=== PATIENT | male | born 1970 | race African-American/Black ===

== ENCOUNTER 2018-03-01 20:24 | Inpatient (IN) | payer SELFPAY ==
[~2018-03-01] VITALS: Ht 172.7 cm; Wt 101.7 kg
[2018-03-01] MEDS ORDERED: IOHEXOL 350 MG/ML 10 ML VIAL (for RAD DIAG) IVCONTRAST ONE (20:25)
[2018-03-01 20:36] VITALS: BP 153/90; PULSE 91; RESP 18; TEMP 98.5; O2SAT 95
[2018-03-01] MEDS ORDERED: ASPIRIN 325 MG TAB PO ONE (21:15)
--- NOTE | 2018-03-01 21:46 | RADRPT ---
EXAM DATE: 03/01/2018 9:22 PM EDT AGE/SEX: 47 years / Male INDICATIONS: Chest pain and short of breath. CLINICAL DATA: This is the patient's initial encounter. Patient reports that signs and symptoms have been present for 2 days and indicates a pain score of 2/10. MEDICAL/SURGICAL HISTORY: None. None. COMPARISON: No prior exams available for comparison. FINDINGS: A single AP view of the chest demonstrates the lungs to be symmetrically aerated without evidence of mass, infiltrate or effusion. The cardiomediastinal contours are unremarkable. Osseous structures a re intact. CONCLUSION: No active disease. Electronically signed by: Bruno Jacinto MD 03/01/2018 9:44 PM EDT
[2018-03-01 22:11] LABS: HEMATOCRIT 34.8 % (39.0-51.0); HEMOGLOBIN 12.2 GM/DL (13.0-17.0); MEAN CELL VOLUME 81.9 FL (80.0-100.0); MEAN CORPUSCULAR HEMOGLOBIN 28.8 PG (27.0-34.0); MEAN CORPUSCULAR HGB CONC 35.2 % (32.0-36.0); MEAN PLATELET VOLUME 7.6 FL (7.0-11.0); PLATELET COUNT 313 TH/MM3 (150-450); RED BLOOD COUNT 4.25 MIL/MM3 (4.50-5.90); WHITE BLOOD COUNT 4.3 TH/MM3 (4.0-11.0)
[2018-03-01 22:19] LABS: INTERNATIONAL NORMALIZED RATIO 1.1 RATIO; PROTHROMBIN TIME - PATIENT 11.4 SEC (9.8-11.6)
[2018-03-01 22:21] LABS: ALBUMIN 2.9 GM/DL (3.4-5.0); AST (GOT) 18 U/L (15-37); BICARBONATE 22.5 MEQ/L (21.0-32.0); BLOOD UREA NITROGEN 11 MG/DL (7-18); CALCIUM 8.6 MG/DL (8.5-10.1); CHLORIDE 110 MEQ/L (98-107); CREATININE 1.24 MG/DL (0.60-1.30); GLOMERULAR FILTRATION RATE 62 ML/MIN (>89); GLUCOSE,RANDOM 88 MG/DL (74-106); SODIUM (NA) 143 MEQ/L (136-145)
--- NOTE | 2018-03-01 22:22 | PD ---
HPI Chief Complaint: Chest Pain Time Seen by Provider: 20:55 Travel History International Travel<30 days: No Contact w/Intl Traveler<30days: No Traveled to known affect area: No History of Present Illness HPI 47-year-old male that presents to the ED for evaluation of chest pain. Per patient has had some chest pain and shortness of breath for the past couple of days. Per patient he has had an episode like this before a couple weeks ago but did not seek help. Per patient he got concerned as well as his friend because he complained of severe pain on her right leg. Per patient he woke up with this pain a couple of days ago. He has then since developed some pain in his chest and some shortness of breath. Per patient the pain comes and goes. Per patient currently his pain is 7 out of 10. He denies any injury or trauma. Per patient he does have a family history of his brothers dying from clots within the past couple months. He himself is not a good historian does not really know any medical history. He does not really follow with her doctor. He does have a history of smoking. He denies any recent travel. No urinary or bowel movement issues. No cough or runny nose. No fevers chills or sweats. Denies any drugs or alcohol. PFSH Past Medical History Medical History: Denies Significant Hx Diminished Hearing: No Immunizations Current: Yes Past Surgical History Surgical History: No Previous Surgery Social History Alcohol Use: Yes Tobacco Use: No Substance Use: Yes Allergies-Medications (Allergen,Severity, Reaction): Coded Allergies: No Known Allergies (Unverified , 03/01/18) Review of Systems Except as stated in HPI: all other systems reviewed are Neg Physical Exam Narrative GENERAL: SKIN: Warm and dry. HEAD: Atraumatic. Normocephalic. EYES: Pupils equal and round. No scleral icterus. No injection or drainage. ENT: No nasal bleeding or discharge. Mucous membranes pink and moist. Tongue is midline. No uvula deviation. NECK: Trachea midline. No JVD. CARDIOVASCULAR: Regular rate and rhythm. No murmurs, S3, S4. RESPIRATORY: No accessory muscle use. Clear to auscultation. Breath sounds equal bilaterally. GASTROINTESTINAL: Abdomen soft, non-tender, nondistended. Hepatic and splenic margins not palpable. MUSCULOSKELETAL: Extremities without clubbing, cyanosis, or edema. No obvious deformities. Full range of motion of the upper and lower extremities bilaterally. 2+ pulses bilaterally. NEUROLOGICAL: Awake and alert. No obvious cranial nerve deficits. Motor grossly within normal limits. Five out of 5 muscle strength in the arms and legs. Normal speech. PSYCHIATRIC: Appropriate mood and affect; insight and judgment normal. Data Data Last Documented VS Vital Signs Date Time Temp Pulse Resp B/P (MAP) Pulse Ox O2 Delivery O2 Flow Rate FiO2 03/01/18 20:36 98.5 91 18 153/90 (111) 95 Orders Orders Electrocardiogram (03/01/18 21:07) Complete Blood Count With Diff (03/01/18 21:07) Comprehensive Metabolic Panel (03/01/18 21:07) Ckmb (Isoenzyme) Profile (03/01/18 21:07) Troponin I (03/01/18 21:07) Prothrombin Time / Inr (Pt) (03/01/18 21:07) Act Partial Throm Time (Ptt) (03/01/18 21:07) D-Dimer (03/01/18 21:07) Magnesium (Mg) (03/01/18 21:07) Chest, Single Ap (03/01/18 21:07) Iv Access Insert/Monitor (03/01/18 21:07) Ecg Monitoring (03/01/18 21:07) Oximetry (03/01/18 21:07) Aspirin (Aspirin) (03/01/18 21:15) Us Leg Venous Doppler (03/01/18 ) CKMB (03/01/18 21:50) CKMB% (03/01/18 21:50) Ct Pulmonary Angiogram (03/01/18 ) Labs Laboratory Tests Test 03/01/18 21:50 White Blood Count 4.3 TH/MM3 Red Blood Count 4.25 MIL/MM3 Hemoglobin 12.2 GM/DL Hematocrit 34.8 % Mean Corpuscular Volume 81.9 FL Mean Corpuscular Hemoglobin 28.8 PG Mean Corpuscular Hemoglobin Concent 35.2 % Red Cell Distribution Width 16.0 % Platelet Count 313 TH/MM3 Mean Platelet Volume 7.6 FL CBC Comment AUTO DIFF Prothrombin Time 11.4 SEC Prothromb Time International Ratio 1.1 RATIO Activated Partial Thromboplast Time 29.9 SEC D-Dimer Quantitative (PE/DVT) 1.70 MG/L FEU Blood Urea Nitrogen 11 MG/DL Creatinine 1.24 MG/DL Random Glucose 88 MG/DL Total Protein 7.5 GM/DL Albumin 2.9 GM/DL Calcium Level 8.6 MG/DL Magnesium Level 2.0 MG/DL Alkaline Phosphatase 91 U/L Aspartate Amino Transf (AST/SGOT) 18 U/L Alanine Aminotransferase (ALT/SGPT) 19 U/L Total Bilirubin 0.3 MG/DL Sodium Level 143 MEQ/L Potassium Level 3.7 MEQ/L Chloride Level 110 MEQ/L Carbon Dioxide Level 22.5 MEQ/L Anion Gap 11 MEQ/L Estimat Glomerular Filtration Rate 62 ML/MIN Total Creatine Kinase 140 U/L Creatine Kinase MB 0.6 NG/ML Troponin I LESS THAN 0.02 NG/ML MDM Medical Decision Making Medical Screen Exam Complete: Yes Emergency Medical Condition: Yes Medical Record Reviewed: Yes Interpretation(s) CBC & BMP Diagram 03/01/18 21:50 Total Protein 7.5, Albumin 2.9 L, Calcium Level 8.6, Magnesium Level 2.0, Alkaline Phosphatase 91, Aspartate Amino Transf (AST/SGOT) 18, Alanine Aminotransferase (ALT/SGPT) 19, Total Bilirubin 0.3 Last Impressions Chest X-Ray 03/01/18 2107 Signed Impressions: CONCLUSION: No active disease. Lower Extremity Ultrasound 03/01/18 0000 Signed Impressions: CONCLUSION: 1. Negative right lower extremity DVT study. troponin and CKMB negative d-dimmer positive Differential Diagnosis Chest pain versus a typical chest pain versus PE versus DVT versus pneumonia versus bronchitis versus ACS Narrative Course 47-year-old male that presents to the ED for evaluation of chest pain and right leg pain and swelling. Patient was properly examined and was found to have signs and symptoms concerning for DVT versus chest pain versus PE. Labs and imaging order. Patient was given aspirin. patient will be signed out to my attending pending disposition and likely admission to [facility]. Case signed out to my attending pending disposition. Sami Lerner Mar 01, 2018 22:22
--- NOTE | 2018-03-01 22:23 | RADRPT ---
EXAM DATE: 03/01/2018 10:18 PM EDT AGE/SEX: 47 years / Male INDICATIONS: Right leg swelling. CLINICAL DATA: This is the patient's initial encounter. Patient reports that signs and symptoms have been present for 1 day and indicates a pain score of 4/10. MEDICAL/SURGICAL HISTORY: . Right leg swelling. Alcohol use. Substance use. None. COMPARISON: No prior exams available for comparison. TECHNIQUE: Venous ultrasound of both lower extremities was performed from the inguinal ligament to t he proximal calf. Real-time, color Doppler and spectral tracing, compression and augmentation techni ques were used. FINDINGS: Negative for acute thrombus in the femoral, popliteal, peroneal and posterior tibial veins . Normal compression and augmentation. CONCLUSION: 1. Negative right lower extremity DVT study. Electronically signed by: Bruno Jacinto MD 03/01/2018 10:22 PM EDT
[2018-03-01 22:27] LABS: ALKALINE PHOSPHATASE 91 U/L (45-117); ALT (GPT) 19 U/L (12-78); TOTAL BILIRUBIN ADULT 0.3 MG/DL (0.2-1.0); TOTAL PROTEIN 7.5 GM/DL (6.4-8.2); TROPONIN I LESS THAN 0.02 NG/ML (0.02-0.05)
[2018-03-01 22:35] LABS: D-DIMER 1.7 MG/L FEU (0.00-0.50)
[2018-03-01 23:20] LABS: BASOPHILS 1 % (0-2); LYMPHOCYTES 50 % (9-44); MONOCYTES 4 % (0-8); NEUTROPHIL # MANUAL DIFF 1.9 TH/MM3 (1.8-7.7); POLYS (SEG NEUTROPHILS) 45 % (16-70)
[2018-03-01 23:21] LABS: ACANTHOCYTES OCC (NORMAL)
[2018-03-02] VITALS (28 sets, daily range): BP systolic 104–141; BP diastolic 61–91; PULSE 59–90; RESP 16–19; TEMP 98.2–99.2; O2SAT 94–98
--- NOTE | 2018-03-02 00:17 | RADRPT ---
EXAM DATE: 03/02/2018 12:09 AM EDT AGE/SEX: 47 years / Male INDICATIONS: Shortness of breath with chest pain. Elevated D-Dimer. CLINICAL DATA: This is the patient's initial encounter. Patient reports that signs and symptoms have been present for 1 day and indicates a pain score of 6/10. MEDICAL/SURGICAL HISTORY: . Substance abuse Arthroscopy. RADIATION DOSE: 20.56 CTDI (mGy) COMPARISON: No prior exams available for comparison. TECHNIQUE: Volumetric scanning was performed using a multi-row detector CT scanner during bolus infu lauren of 80 ml Omnipaque 350 (iohexol) nonionic water-soluble contrast as a single exam dose. The ant a was post processed with a variety of visualization algorithms including full volume maximum intensi ty projection and sliding thin slab reformation. Using automated exposure control and adjustment of the mA and/or kV according to patient size, radiation dose was kept as low as reasonably achievable t o obtain optimal diagnostic quality images. FINDINGS: Pulmonary Arteries: Multiple filling defects are seen in the pulmonary arteries bilaterally includin g distal right main pulmonary artery extending into the right middle lobe, right lower lobe branches. Similar changes on the left but to a lesser degree involving the left lower lobe branches. Minimal i nvolvement in the left upper lobe branches. Pulmonary arteries are normal in caliber. Lung: No infil trates seen. Effusion: None. Mediastinum: No evidence of mediastinal or hilar adenopathy. Other: The axilla is unremarkable. CONCLUSION: 1. Bilateral pulmonary emboli. 2. No infiltrate seen. Electronically signed by: Rigo Sheppard MD 03/02/2018 12:15 AM EDT
[2018-03-02] MEDS ORDERED: HEPARIN-D5W 25,000 U/250 ML 250 ML IV PRN (00:45)
--- NOTE | 2018-03-02 00:50 | PD ---
Physical Exam Narrative I, Dr. Evans, have reviewed the advance practice practitioner's documentation and am in agreement, met with the patient face to face, made the diagnosis, and the medical decision making was done by me. *My assessment and Findings: Patient is a 47-year-old male who comes in complaining of chest pain. He says the pain started a few days ago, but is gotten worse. He does report shortness of breath. Also complained of a painful lump to his leg. Lungs are clear to auscultation, heart is regular in rate and rhythm. Data Data Last Documented VS Vital Signs Date Time Temp Pulse Resp B/P (MAP) Pulse Ox O2 Delivery O2 Flow Rate FiO2 03/01/18 20:36 98.5 91 18 153/90 (111) 95 Orders Orders Electrocardiogram (03/01/18 21:07) Complete Blood Count With Diff (03/01/18 21:07) Comprehensive Metabolic Panel (03/01/18 21:07) Ckmb (Isoenzyme) Profile (03/01/18 21:07) Troponin I (03/01/18 21:07) Prothrombin Time / Inr (Pt) (03/01/18 21:07) Act Partial Throm Time (Ptt) (03/01/18 21:07) D-Dimer (03/01/18 21:07) Magnesium (Mg) (03/01/18 21:07) Chest, Single Ap (03/01/18 21:07) Iv Access Insert/Monitor (03/01/18 21:07) Ecg Monitoring (03/01/18 21:07) Oximetry (03/01/18 21:07) Aspirin (Aspirin) (03/01/18 21:15) Us Leg Venous Doppler (03/01/18 ) CKMB (03/01/18 21:50) CKMB% (03/01/18 21:50) Ct Pulmonary Angiogram (03/01/18 ) Iohexol 350 Inj (Omnipaque 350 Inj) (03/01/18 20:25) Labs Laboratory Tests Test 03/01/18 21:50 White Blood Count 4.3 TH/MM3 Red Blood Count 4.25 MIL/MM3 Hemoglobin 12.2 GM/DL Hematocrit 34.8 % Mean Corpuscular Volume 81.9 FL Mean Corpuscular Hemoglobin 28.8 PG Mean Corpuscular Hemoglobin Concent 35.2 % Red Cell Distribution Width 16.0 % Platelet Count 313 TH/MM3 Mean Platelet Volume 7.6 FL CBC Comment AUTO DIFF Differential Total Cells Counted 100 Neutrophils % (Manual) 45 % Lymphocytes % 50 % Monocytes % 4 % Basophils % 1 % Neutrophils # (Manual) 1.9 TH/MM3 Differential Comment FINAL DIFF MANUAL Platelet Estimate NORMAL Platelet Morphology Comment ENLARGED Acanthocytes OCC Prothrombin Time 11.4 SEC Prothromb Time International Ratio 1.1 RATIO Activated Partial Thromboplast Time 29.9 SEC D-Dimer Quantitative (PE/DVT) 1.70 MG/L FEU Blood Urea Nitrogen 11 MG/DL Creatinine 1.24 MG/DL Random Glucose 88 MG/DL Total Protein 7.5 GM/DL Albumin 2.9 GM/DL Calcium Level 8.6 MG/DL Magnesium Level 2.0 MG/DL Alkaline Phosphatase 91 U/L Aspartate Amino Transf (AST/SGOT) 18 U/L Alanine Aminotransferase (ALT/SGPT) 19 U/L Total Bilirubin 0.3 MG/DL Sodium Level 143 MEQ/L Potassium Level 3.7 MEQ/L Chloride Level 110 MEQ/L Carbon Dioxide Level 22.5 MEQ/L Anion Gap 11 MEQ/L Estimat Glomerular Filtration Rate 62 ML/MIN Total Creatine Kinase 140 U/L Creatine Kinase MB 0.6 NG/ML Troponin I LESS THAN 0.02 NG/ML [facility] Supervised Visit with LAUREEN: Yes Narrative Course Patient had a CT of his chest which reveals several PEs. He was started on heparin drip. Ultrasound of the leg was negative for DVT. Last 24 hours Impressions Chest X-Ray 03/01/182106 Signed Impressions: CONCLUSION: No active disease. Lower Extremity Ultrasound 03/01/18 0000 Signed Impressions: CONCLUSION: 1. Negative right lower extremity DVT study. CT Angiography 03/01/18 0000 Signed Impressions: CONCLUSION: 1. Bilateral pulmonary emboli. 2. No infiltrate seen. He will be admitted for further management. Diagnosis Primary Impression: PE (pulmonary thromboembolism) Admitting Information Admitting Physician Requests: Admit Yael Evans MD Mar 02, 2018 00:50
[2018-03-02] MEDS ORDERED: BISACODYL 10 MG SUPP RECTAL PRN (01:15)
[2018-03-02] MEDS ORDERED: METOCLOPRAMIDE HCL 10 MG/2 ML VIAL IV PUSH PRN (01:15)
[2018-03-02] MEDS ORDERED: MORPHINE SULFATE 2 MG/ML SYRINGE IV PUSH PRN (01:15)
[2018-03-02] MEDS ORDERED: ACETAMINOPHEN/HYDROcodone 325 MG/5 MG TAB PO PRN (01:15)
[2018-03-02] MEDS ORDERED: SENNOSIDES 8.6 MG TAB PO PRN (01:15)
[2018-03-02] MEDS ORDERED: SODIUM CHLORIDE 0.9% FLUSH 10 ML FLUSH IV FLUSH PRN (01:15)
[2018-03-02] MEDS ORDERED: LACTULOSE SYRUP 20 GM/30 ML CUP PO PRN (01:15)
[2018-03-02] MEDS ORDERED: ACETAMINOPHEN 325 MG TAB PO PRN (01:15)
[2018-03-02] MEDS ORDERED: RESP: ALBUTEROL 2.5 MG/IPRATROPIUM 0.5 MG NEB (PRN) NEB (01:15)
[2018-03-02] MEDS ORDERED: MAGNESIUM HYDROXIDE SUSP 30 ML CUP PO PRN (01:15)
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
[2018-03-02] MEDS: HEPARIN 25,000 UNITS-D5W 250 ML - PREMIX IV PRN ×2 (01:54→15:58)
[2018-03-02 04:29] LABS: BILIRUBIN, URINE NEG (NEG); BLOOD, URINE NEG (NEG); GLUCOSE,URINE NEG (NEG); KETONE, URINE NEG (NEG); MUCUS URINE FEW /lpf (OCC); NITRITE,URINE NEG (NEG); URINE COLOR YELLOW (YELLW/STRAW); URINE LEUKOCYTE ESTERASE NEG (NEG)
[2018-03-02] MEDS: DOCUSATE SODIUM 50 MG/SENNA 8.6 MG TAB PO SCH ×2 (09:00→20:26)
[2018-03-02] MEDS: SODIUM CHLORIDE 0.9% FLUSH 10 ML FLUSH IV FLUSH SCH ×2 (09:00→20:27)
[2018-03-02] MEDS: BUDESONIDE-FORMOTEROL 160/4.5 MCG INHALER INH SCH ×2 (09:56→20:28)
[2018-03-02 13:14] LABS: HEMOGLOBIN 12.8 GM/DL (13.0-17.0); MEAN CELL VOLUME 82.5 FL (80.0-100.0); MEAN CORPUSCULAR HEMOGLOBIN 27.1 PG (27.0-34.0); MEAN CORPUSCULAR HGB CONC 32.8 % (32.0-36.0); MEAN PLATELET VOLUME 8.1 FL (7.0-11.0); PLATELET COUNT 364 TH/MM3 (150-450); RED BLOOD COUNT 4.73 MIL/MM3 (4.50-5.90); RED CELL DISTRIBUTION WIDTH 16.3 % (11.6-17.2)
[2018-03-02 13:43] LABS: ALT (GPT) 20 U/L (12-78); AST (GOT) 21 U/L (15-37); BICARBONATE 24.3 MEQ/L (21.0-32.0); BLOOD UREA NITROGEN 10 MG/DL (7-18); CALCIUM 8.6 MG/DL (8.5-10.1); CHLORIDE 109 MEQ/L (98-107); CREATININE 1.06 MG/DL (0.60-1.30); GLOMERULAR FILTRATION RATE 90 ML/MIN (>89); GLUCOSE,RANDOM 82 MG/DL (74-106); SODIUM (NA) 143 MEQ/L (136-145)
[2018-03-02 13:47] LABS: ALKALINE PHOSPHATASE 101 U/L (45-117); TOTAL BILIRUBIN ADULT 0.3 MG/DL (0.2-1.0); TOTAL PROTEIN 7.8 GM/DL (6.4-8.2); TROPONIN I LESS THAN 0.02 NG/ML (0.02-0.05)
--- NOTE | 2018-03-02 13:47 | EKG ---
Date Performed: 03/01/2018 Time Performed: 20:51:19 PTAGE: 47 years EKG: Sinus rhythm MODERATE VOLTAGE CRITERIA FOR LVH, CONSIDER NORMAL VARIANT ST DEVIATION AND MARKED T-WAVE ABNORMALIT Y, CONSIDER ANTERIOR ISCHEMIA ABNORMAL ECG NO PREVIOUS TRACING DOCTOR: Freddy Hong Interpretating Date/Time 03/02/2018 13:44:14
[2018-03-02 14:01] LABS: ACANTHOCYTES OCC (NORMAL); BANDS 2 % (0-6); BURR CELLS 1+ (NORMAL); LYMPHOCYTES 48 % (9-44); MONOCYTES 13 % (0-8); NEUTROPHIL # MANUAL DIFF 1.6 TH/MM3 (1.8-7.7); POLYS (SEG NEUTROPHILS) 37 % (16-70)
--- NOTE | 2018-03-02 16:34 | ECHRPT ---
Indication: PE, EVAL RIGHT HEART CONCLUSIONS Normal left ventricular size. Wall thickness is normal. The left ventricular systolic function is normal with an estimated ejection fraction in the range of 55-60%. The right ventricle is mildly dilated. The right ventricular systoilc function is moderately decreased. There is trace tricuspid valve regurgitation. There is estimated severe pulmonary hypertension present ( 75 mmHg). The pulmonary valve is not well visualized. BP: / HR: Rhythm: Technical Quality: FINDINGS LEFT VENTRICLE Normal left ventricular size. Wall thickness is normal. The left ventricular systolic function is normal with an estimated ejection fraction in the range of 55-60%. RIGHT VENTRICLE The right ventricle is mildly dilated. The right ventricular systoilc function is moderately decreased. LEFT ATRIUM The left atrial size is normal. RIGHT ATRIUM The right atrial size is normal. ATRIAL SEPTUM Normal atrial septal thickness without atrial level shunting by limited color doppler interrogation. AORTA The aortic root and proximal ascending aorta are normal in size on limited imaging. MITRAL VALVE Structurally normal mitral valve. No mitral valve stenosis or regurgitation. AORTIC VALVE Trileaflet aortic valve. No aortic valve stenosis or regurgitation. TRICUSPID VALVE There is trace tricuspid valve regurgitation. There is estimated severe pulmonary hypertension present ( 75 mmHg). PULMONARY VALVE The pulmonary valve is not well visualized. VESSELS The inferior vena cava is normal in size. PERICARDIUM No pericardial effusion. Charles Graves MD, FACC (Electronically Signed) Final Date:02 March 2018 16:33
[2018-03-02] MEDS ORDERED: IOHEXOL 350 MG/ML 10 ML VIAL (for RAD DIAG) IVCONTRAST ONE (22:58)
--- NOTE | 2018-03-02 23:11 | RADRPT ---
EXAM DATE: 03/02/2018 11:05 PM EDT AGE/SEX: 47 years / Male INDICATIONS: Unexplained pulmonary emboli. CLINICAL DATA: This is the patient's initial encounter. Patient reports that signs and symptoms have been present for 1 day and indicates a pain score of 0/10. MEDICAL/SURGICAL HISTORY: None. None. ORAL CONTRAST: No oral contrast ingested. RADIATION DOSE: 8.63 CTDI (mGy) COMPARISON: [facility] [place], CT PULMONARY ANGIOGRAM, 03/01/2018. . TECHNIQUE: Multiple contiguous axial images were obtained through the abdomen and pelvis following b olus infusion of 96 ml Omnipaque 350 (iohexol) nonionic water-soluble contrast as a single exam dos e. No oral contrast ingested. Using automated exposure control and adjustment of the mA and/or kV ac cording to patient size, the radiation dose was kept as low as reasonably achievable to obtain optima l diagnostic quality images. FINDINGS: Lower Lungs: The visualized lower lungs are clear. Liver: The liver has a homogeneous density without space-occupying lesion. There is no dilation of th e biliary tree. Spleen: Homogeneous density without enlargement. Pancreas: Unremarkable without mass or calcification. Kidneys: There is some mild inflammation along the medial left kidney of uncertain significance. The patient could've passed a recent renal stone or could be evidence of a low-grade infection. Adrenal Glands: Unremarkable. Aorta: The aorta and proximal iliac vessels are grossly unremarkable without aneurysmal dilation. Bowel/Mesentery: The bowel loops are grossly unremarkable. The cecum and sigmoid colon have a normal configuration. Abdominal Wall: Intact. Retroperitoneum: No evidence of adenopathy in the retrocrural, para-aortic, or deep pelvic regions. Bladder: Contours are smooth. Reproductive Organs: No abnormal masses or calcifications seen. Inguinal: The inguinal region is unremarkable without evidence of adenopathy. Bony Structures: Unremarkable. CONCLUSION: 1. Questionable inflammation on the left kidney otherwise unremarkable exam. No etiology for pulmona ry emboli is identified Electronically signed by: Charles Pruitt MD 03/02/2018 11:09 PM EDT
[2018-03-03] VITALS (18 sets, daily range): BP systolic 121–127; BP diastolic 72–79; PULSE 68–82; RESP 18; TEMP 97.8–98.4; O2SAT 95–100
[2018-03-03] MEDS: HEPARIN 25,000 UNITS-D5W 250 ML - PREMIX IV PRN (04:46)
[2018-03-03 07:05] LABS: ALBUMIN 2.8 GM/DL (3.4-5.0); AST (GOT) 12 U/L (15-37); BICARBONATE 23.9 MEQ/L (21.0-32.0); BLOOD UREA NITROGEN 13 MG/DL (7-18); CALCIUM 8.3 MG/DL (8.5-10.1); CHLORIDE 109 MEQ/L (98-107); GLOMERULAR FILTRATION RATE 86 ML/MIN (>89); GLUCOSE,RANDOM 89 MG/DL (74-106); SODIUM (NA) 142 MEQ/L (136-145)
[2018-03-03 07:06] LABS: ALT (GPT) 17 U/L (12-78)
[2018-03-03 07:09] LABS: ALKALINE PHOSPHATASE 93 U/L (45-117); TOTAL BILIRUBIN ADULT 0.2 MG/DL (0.2-1.0); TOTAL PROTEIN 7.4 GM/DL (6.4-8.2)
[2018-03-03 07:30] LABS: HEMATOCRIT 36.9 % (39.0-51.0); HEMOGLOBIN 12.3 GM/DL (13.0-17.0); MEAN CELL VOLUME 82.7 FL (80.0-100.0); MEAN CORPUSCULAR HEMOGLOBIN 27.5 PG (27.0-34.0); MEAN CORPUSCULAR HGB CONC 33.2 % (32.0-36.0); MEAN PLATELET VOLUME 7.8 FL (7.0-11.0); PLATELET COUNT 367 TH/MM3 (150-450); RED BLOOD COUNT 4.47 MIL/MM3 (4.50-5.90); RED CELL DISTRIBUTION WIDTH 15.7 % (11.6-17.2)
--- NOTE | 2018-03-03 07:42 | MB ---
cc: Luis Eduardo Simpson MD DATE: 03/02/2018 REASON FOR CONSULTATION: Patient with pulmonary embolus. PATIENT PROFILE: The patient is a 47-year-old black male. He is single. He has never been . He has a son. He was born in [place]. 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 He has not worked in several years and probably up to 5 years. 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 He smokes occasional cigars. He denies any alcohol use. He does use marijuana. He does not seem to have any resources and when I asked him how he obtains food, he tells me that other people take care of him. HISTORY OF PRESENT ILLNESS: The patient is a 47-year-old male who presented to the emergency room because of shortness of breath and chest pain of several days' duration. He was having mild discomfort in the right leg. He is a very poor historian. He underwent number of studies, which included a lower extremity ultrasound on 11/29/2017, which showed no evidence of DVT in either lower extremity. He had a CT angiogram on 11/29/2017 showing multiple filling defects seen in the pulmonary arteries bilaterally, including the distal right main pulmonary artery extending into the right middle lobe, right lower lobe branches. There were similar changes in the left, but to a lesser degree. There were no infiltrates. There were no masses. LABORATORY DATA: Include a CMP on 11/29, which is unremarkable, CBC and platelet count, hemoglobin 12.8, white count 4000, platelets 268,000, 37% neutrophils, % lymphocytes. Total neutrophil count 1600, the day before that total neutrophil count was 1900. PAST SURGICAL HISTORY: The patient denies any previous surgery. PAST MEDICAL HISTORY: Denies any medical problems. MEDICATIONS PRIOR TO ADMISSION: Occasional Advil or Aleve. ALLERGIES: HE DENIES ANY ALLERGIES. FAMILY HISTORY: He has 11 sisters, 3 brothers. One brother of pancreatic cancer. His mother and father are . He does not give me any history of blood clots in the family. REVIEW OF SYSTEMS: Notable for reading glasses. There have been no other problems except for the recent shortness of breath and chest discomfort. PHYSICAL EXAMINATION: GENERAL: Reveals a gentleman who is not in any acute distress. He is notable for being a poor historian and because of his heavy accent, I can only understand about 3/4 of what he says and have to ask him to repeat himself. VITAL SIGNS: Blood pressure 140/80, respiratory rate 16, pulse 70, temperature 99.2, O2 saturation 98%. HEENT: Head is normocephalic. Sclerae and conjunctivae normal. Oropharynx, poor hygiene. NECK: There is no adenopathy. HEART: Regular rhythm. LUNGS: Clear. ABDOMEN: Soft. No hepatosplenomegaly. EXTREMITIES: Trace edema bilaterally. MUSCULOSKELETAL: No bone pain. NEUROLOGIC: No weakness. Cognition: I am not sure how much he understands the events or the serious nature of these events. ASSESSMENT: The patient is a 47-year-old male. He has unprovoked pulmonary emboli. There is no evidence of a mass on the CAT scan of the thorax. Hypercoagulable workup has been ordered, but this may give false positives as we are dealing with an acute event. Some of the tests are simply not reliable. What is clear, is no matter what the cause, he needs long-term anticoagulation. This would be a minimum of 6 months and potentially lifetime. He certainly is not going to be able to give himself Lovenox shots indefinitely. I do think he is a good candidate for Coumadin, as I believe that he will have trouble following the requirement for frequent testing. I believe the simplest thing to do would be to treat him with Xarelto 15 mg p.o. b.i.d. for 21 days, then Xarelto 20 mg a day. This would be a relatively simple regimen and hopefully he can follow this. There is a fundamental problem. The patient has no resources. He has little understanding into what is going on. He has a green card and is not a citizen. He has not had a job for 5 years and there do not appear to any prospects ahead of him. I have little understanding of his living situation. PLAN: 1. I would recommend that he be switched to Xarelto in the next few days as described above. 2. I put a consult in for case management. He will need a primary care physician to manage his care. In our oncology hematology clinic, we do not manage chronic anticoagulation. The social issues are devastating and hopefully they can be solved as he is at risk of dying without appropriate anticoagulation. I have also ordered a CAT scan of the abdomen and pelvis to see if I can find anything which would have provoked this unexplained embolus. Ultimately, if it is an unprovoked embolus, then he will require lifetime anticoagulation. If we can find a precipitating event which can be eliminated , he would not necessarily require lifetime anticoagulation. At the present, I would list this as an unprovoked life threatening pulmonary embolus. MD KENTON Paz/RUIZ , 04:08 PM , 06:29 PM BRANDON
[2018-03-03] MEDS: SODIUM CHLORIDE 0.9% FLUSH 10 ML FLUSH IV FLUSH SCH (08:22)
[2018-03-03] MEDS: DOCUSATE SODIUM 50 MG/SENNA 8.6 MG TAB PO SCH (08:22)
[2018-03-03] MEDS: BUDESONIDE-FORMOTEROL 160/4.5 MCG INHALER INH SCH (08:22)
[2018-03-03 10:02] LABS: LYMPHOCYTES 47 % (9-44); MONOCYTES 6 % (0-8); NEUTROPHIL # MANUAL DIFF 1.9 TH/MM3 (1.8-7.7); POLYS (SEG NEUTROPHILS) 47 % (16-70)
[2018-03-03 10:03] LABS: ACANTHOCYTES 1+ (NORMAL)
[2018-03-03] MEDS ORDERED: XARE20TA PO (13:37)
[2018-03-03] MEDS ORDERED: XARE15TA PO (13:37)
--- NOTE | 2018-03-03 13:38 | HHI.DCPOC ---
Discharge Care Plan Diagnosis: (1) PE (pulmonary thromboembolism) (2) Chest pain Goals to Promote Your Health * To prevent worsening of your condition and complications * To maintain your health at the optimal level Directions to Meet Your Goals Take your medications as prescribed Follow your dietary instruction Follow activity as directed Keep your appointments as scheduled Take your immunizations and boosters as scheduled If your symptoms worsen call your PCP, if no PCP go to Urgent Care Center or Emergency Room Smoking is Dangerous to Your Health. Avoid second hand smoke Call the 24-hour hour crisis hotline for domestic abuse at Kendrick Reyes MD Mar 03, 2018 13:38
--- NOTE | 2018-03-04 00:51 | HHI.PR ---
Subjective Remarks Note for 03/03/18 Patient seen and examined. He reports better. He is breathing comfortably. Stable on room air. Objective Vitals Vital Signs Date Time Temp Pulse Resp B/P (MAP) Pulse Ox O2 Delivery O2 Flow Rate FiO2 03/03/18 14:01 68 03/03/18 13:00 76 03/03/18 12:01 69 03/03/18 11:01 97.9 70 121/72 (88) 100 03/03/18 11:00 75 03/03/18 10:00 70 03/03/18 09:00 76 03/03/18 08:45 97.8 75 18 122/79 (93) 95 03/03/18 08:00 70 03/03/18 07:00 70 03/03/18 06:04 77 03/03/18 05:04 71 03/03/18 04:03 82 03/03/18 03:39 98.4 73 18 127/76 (93) 96 03/03/18 03:00 70 03/03/18 02:00 72 03/03/18 01:00 73 I/O 03/03/18 03/03/18 03/03/18 03/04/18 03/04/18 03/04/18 07:00 15:00 23:00 07:00 15:00 23:00 Intake Total 730 ml 480 ml Output Total 350 ml 500 ml Balance 380 ml -20 ml Intake Oral 480 ml 480 ml IV Total 250 ml Output Urine Total 350 ml 500 ml # Voids 1 # Bowel Movements 0 Result Diagram: 03/03/1860503/03/18 06 Objective Remarks GENERAL: This is a well-nourished, well-developed patient, in no apparent distress. CARDIOVASCULAR: Normal rate and regular rhythm without murmurs, gallops, or rubs. RESPIRATORY: Good respiratory efforts. Breath sounds equal and clear to auscultation bilaterally. GASTROINTESTINAL: Abdomen soft, non-tender, non-distended. Normal active bowel sounds MUSCULOSKELETAL: Extremities without cyanosis, or edema. NEURO: Alert & Oriented x4 to person, place, time, situation. Moves all ext x4 PSYCH: Appropriate mood and affect. A/P Problem List: (1) PE (pulmonary thromboembolism) ICD Code: I26.99 - Other pulmonary embolism without acute cor pulmonale (2) Chest pain ICD Code: R07.9 - Chest pain, unspecified (3) HTN (hypertension) ICD Code: I10 - Essential (primary) hypertension Assessment and Plan 47-year-old male who presented with progressive shortness of breath and was found to have bilateral pulmonary embolism. Doppler negative for DVT. The patient was evaluated by disk sharpener. There is no apparent trigger for pulmonary embolism. It is suggested this might have been an unprovoked PE therefore he will likely require anticoagulation for life. The patient was initially treated with heparin drip. He was transition to Xarelto. Case management consulted and assisted the patient with acquiring Xarelto. [facility] Discharge Planning Discharge home in good condition Activity: Regular as tolerated Diet: Regular as tolerated Follow-up with: Lissnaldo mcconnell Meds: Kendrick Mcneil MD Mar 04, 2018 00:51
[2018-03-04 15:51] LABS: HOMOCYSTEINE 8.1 umol/L (<11.4)
[2018-03-04 16:23] LABS: CARDIOLIPIN IGG AB <9.4 GPL; CARDIOLIPIN IGM AB 14.1 MPL
== END 2018-03-03 14:42 | disposition home or self-care (01) | DRG 176 ==
LOC: NEPC 20:24 → NEDA 03-02 00:11 → NEDH 03-02 04:22 → HCIS 03-02 05:45
PROVIDERS: ADMIT Family Medicine; ATTEND Family Medicine
DX: I26.99 Other pulmonary embolism without acute cor pulmonale (principal); I10 Essential (primary) hypertension
CPT/HCPCS: 71045; 71275; 74177; 80053; 80307; 81001; 81240; 81241; 81291; 82550; 82552; 83090; 83735; 84484; 85007; 85027; 85240; 85300; 85303; 85306; 85307; 85379; 85610; 85613; 85730; 86146; 86147; 86148; 93005; 93306; 93971; 99285; J1644; Q9967